=== PATIENT | female | born 1980 | race Caucasian/White ===

== ENCOUNTER 2020-06-26 17:10 | Emergency (ER) | payer OTHER ==
[~2020-06-26] VITALS: Ht 167.6 cm; Wt 59.0 kg
[2020-06-26 17:14] VITALS: BP 123/71
[2020-06-26] MEDS ORDERED: ACETAMINOPHEN 500 MG TAB PO ONE (19:00)
== END 2020-06-26 19:35 | disposition home or self-care (01) ==
LOC: ER 17:12
DX: S83.8X2A Sprain of other specified parts of left knee, initial encounter (principal); S83.8X1A Sprain of other specified parts of right knee, initial encounter; S63.592A Other specified sprain of left wrist, initial encounter; W01.198A Fall on same level from slipping, tripping and stumbling with subsequent striking against other object, initial encounter; Y93.89 Activity, other specified; Y92.091 Bathroom in other non-institutional residence as the place of occurrence of the external cause; Y99.8 Other external cause status
CPT/HCPCS: 29125; 73110; 73564

== ENCOUNTER 2023-01-12 13:19 | Emergency (ER) | payer OTHER ==
[~2023-01-12] VITALS: Ht 167.6 cm; Wt 60.0 kg
[2023-01-12 15:05] VITALS: BP 140/74; PULSE 81; RESP 16; TEMP 98.7; O2SAT 96
== END 2023-01-12 16:19 | disposition home or self-care (01) ==
LOC: ER 13:19
DX: M79.672 Pain in left foot (principal); R51.9 Headache, unspecified; K21.9 Gastro-esophageal reflux disease without esophagitis; Z90.710 Acquired absence of both cervix and uterus; W01.0XXA Fall on same level from slipping, tripping and stumbling without subsequent striking against object, initial encounter; Y93.89 Activity, other specified; Y92.89 Other specified places as the place of occurrence of the external cause; Y99.8 Other external cause status
CPT/HCPCS: 73630

== ENCOUNTER 2023-07-15 22:08 | Emergency (ER) | payer OTHER ==
[~2023-07-15] VITALS: Ht 167.6 cm; Wt 63.6 kg
[2023-07-15 22:35] VITALS: BP 123/77; PULSE 79; RESP 18; TEMP 99.7
[2023-07-16] MEDS ORDERED: IBUP-1456 PO (00:30)
[2023-07-16] MEDS: KETOROLAC TROMETH 60MG/2ML VIAL IM ONE (00:52)
[2023-07-16 01:13] VITALS: O2SAT 98
== END 2023-07-16 01:31 | disposition home or self-care (01) ==
LOC: ER 22:08
DX: S46.912A Strain of unspecified muscle, fascia and tendon at shoulder and upper arm level, left arm, initial encounter (principal); K21.9 Gastro-esophageal reflux disease without esophagitis; X58.XXXA Exposure to other specified factors, initial encounter; Y93.89 Activity, other specified; Y92.89 Other specified places as the place of occurrence of the external cause; Y99.8 Other external cause status
CPT/HCPCS: 73030; 96372; 99283; J1885